=== PATIENT | female | born 1985 | race Caucasian/White ===

== ENCOUNTER 2016-11-07 04:40 | Emergency (ER) | payer OTHER ==
[~2016-11-07 04:40] MED LIST: AFRIN3 ML INH; ALBUTEROL17 GM INH; ALLERCLEAR10 MG PO; AMOXICILLIN500 M1 PO; BACTRIM DS TABL1 TA1 PO; COUMADIN PO; ELIMITE60 GM TOP; FERROUS SULFATE PO; FLEXERIL10 M1 PO; IBUPROFEN PO; IBUPROFEN800 MG PO; KEFLEX500 MG PO; LORTAB 5/500 TA1 TA1 PO; MAGIC MOUTHWASH PO; MOTRIN400 MG PO; NAPROSYN500 MG PO; NO MEDICATIONS; PREDNISONE PO; PRENATAL MULTIV1 TA1; PROVENTIL17 GM; ROBITUSSIN A-C S5 ML PO; TESSALON200 MG PO; ULTRAM PO; VIBRAMYCIN100 M1 PO; VICODIN PO; ZITHROMAX PO; ZOFRAN ODT4 MG PO
== END 2016-11-07 05:00 | disposition left against medical advice (07) ==
LOC: CED 04:40
DX: Z53.21 Procedure and treatment not carried out due to patient leaving prior to being seen by health care provider (principal)